=== PATIENT | female | born 1950 | race Caucasian/White ===

== ENCOUNTER → 2016-10-01 | Outpatient (CLI) | payer MEDICARE ==
[~2016-10-01] MED LIST: ALLERGY10 M1 PO; AMLO5TAB PO; AMOXICILLIN 50500 MG PO; ASPIRIN ADULT L81 M2 PO; ATENOLOL25 M1 PO; CARAFATE1 GM/10 ML PO; CLARITHROMYCIN500 MG PO; HYDROCODONE-APA1 TA1 PO; LANSOPRAZOLE30 MG PO; LEVOTHYROXIN0.125 M1 PO; LEVOTHYROXIN0.125 MG PO; LISINOPRIL40 MG PO; NAPROSYN 500MG500 MG PO; NORVASC 2.5MG.2.5 MG PO; POTASSIUM CHLO10 ME1 PO; PRILOSEC20 M1 PO; TRIAMT/HCTZ TAB 75- PO; TRIAMTERENE/HCT1 TAB PO
[2016-10-01 09:29] LABS: URINE BILIRUBIN - DIPSTICK NEGATIVE (NEG); URINE BLOOD TRACE-LYSED (NEG)
[2016-10-01 09:48] LABS: URINE SQUAMOUS CELLS 20-50 #/hpf (0-5)
== END ==
LOC: LAB 08:53
PROVIDERS: Family Medicine
DX: E11.9 Type 2 diabetes mellitus without complications (principal); I10 Essential (primary) hypertension; R60.0 Localized edema; R82.90 Unspecified abnormal findings in urine